=== PATIENT | female | born 1950 | race Caucasian/White ===

== ENCOUNTER 2024-06-24 11:24 | Emergency (ER) | payer MEDICARE, OTHER ==
[~2024-06-24] VITALS: Ht 160 cm; Wt 49.0 kg
[2024-06-24 11:25] VITALS: RESP 16; TEMP 98.7
[2024-06-24] MEDS ORDERED: ULTRAM 50MG50 MG PO (12:13)
[2024-06-24] MEDS: TRAMADOL HCL 50 MG TAB PO STA (12:15)
[2024-06-24 13:36] VITALS: PULSE 63
[2024-06-24 13:58] VITALS: BP 98/63; PULSE 84; RESP 16; O2SAT 100
== END 2024-06-24 13:45 | disposition home or self-care (01) ==
LOC: ER 11:35
DX: S52.591A Other fractures of lower end of right radius, initial encounter for closed fracture (principal); S52.611A Displaced fracture of right ulna styloid process, initial encounter for closed fracture; W18.39XA Other fall on same level, initial encounter; Y93.01 Activity, walking, marching and hiking; Y92.89 Other specified places as the place of occurrence of the external cause
CPT/HCPCS: 99284